=== PATIENT | female | born 1985 | race Caucasian/White ===

== ENCOUNTER 2021-02-17 08:57 | Emergency (ER) | payer MEDICAID ==
[~2021-02-17] VITALS: Ht 162.6 cm; Wt 81.6 kg
[2021-02-17 08:57] VITALS: BP_SYST 157
--- NOTE | 2021-02-17 08:57 | NUR ---
Chelsey lira in EDM - 02/17/21 at 0905 by REX BROUGHT IN BY [facility], PLACED IN HALLWAY AND TRIAGED. REPORT GIVEN TO LAMAR
[2021-02-17 09:05] VITALS: BP_SYST 137
--- NOTE | 2021-02-17 09:10 | NUR ---
Patient triaged and placed in waiting room. VSS and patient appears in no acute distress at this time. Accompanied by SELF, awaiting available bed, and MD notified of need for MSE.
[2021-02-17] MEDS ORDERED: NACL 0.9% 1,000 ML IV ONE (09:15)
[2021-02-17] MEDS ORDERED: levETIRAcetam 750 MG in NS 100 ML IV ONE (09:15)
--- NOTE | 2021-02-17 09:45 | NUR ---
DR JIMÉNEZ TO TRIAGE ROOM FOR EVALUATION
--- NOTE | 2021-02-17 09:50 | NUR ---
ALAINA REMOVED BY DR JIMÉNEZ
--- NOTE | 2021-02-17 10:01 | NUR ---
Patient given written and verbal discharge instructions and verbalizes understanding. ER MD discussed with patient the results and treatment provided. Patient in stable condition. ID arm band removed. Rx of NONE given. Patient educated on pain management and to follow up with PMD. Pain Scale 0/10. Opportunity for questions provided and answered. Medication side effect fact sheet provided.
== END 2021-02-17 10:01 | disposition home or self-care (01) ==
LOC: SED 08:57
DX: S01.01XD Laceration without foreign body of scalp, subsequent encounter (principal); Z48.02 Encounter for removal of sutures; X58.XXXD Exposure to other specified factors, subsequent encounter
CPT/HCPCS: 99281

== ENCOUNTER 2021-03-28 21:36 | Emergency (ER) | payer MEDICAID, SELFPAY ==
[~2021-03-28] VITALS: Ht 162.6 cm; Wt 81.6 kg
[2021-03-28 21:45] VITALS: BP_SYST 114
[2021-03-28] MEDS ORDERED: ACETAMINOPHEN 500 MG TABLET PO ONE (22:15)
[2021-03-28 22:53] LABS: BILIRUBIN,URINE 1+ (NEGATIVE); BLOOD, URINE NEGATIVE (NEGATIVE); CLARITY/URINE SL CLOUDY (CLEAR); COLOR,URINE YELLOW (YELLOW); GLUCOSE,URINE NEGATIVE (NEGATIVE); KETONES,URINE 1+ (NEGATIVE); LEUKOCYTE ESTERASE ,URINE NEGATIVE (NEGATIVE); NITRITE, URINE NEGATIVE (NEGATIVE); PROTEIN URINE NEGATIVE (NEGATIVE); UROBILINOGEN,URINE 0.2 (0.2-1.0)
[2021-03-28 22:58] LABS: HCG,QUAL RESULT NEGATIVE (NEGATIVE)
[2021-03-28 23:02] LABS: BASOPHILS % (AUTO) 0.5 % (0.0-2.0); EOSINOPHILS # (AUTO) 0.1 K/uL (0.0-0.4); EOSINOPHILS % (AUTO) 1.5 % (0.0-4.0); HEMATOCRIT 33.4 % (36-48); LYMPHOCYTES # (AUTO) 2.5 K/uL (1.0-5.5); LYMPHOCYTES % (AUTO) 28.1 % (20.5-51.5); MEAN CORPUSCULAR HEMOGLOBIN 24 pg (27-31); MEAN CORPUSCULAR HGB CONC 33 % (32-36); MEAN CORPUSCULAR VOLUME 73 fL (79.0-98.0); MONOCYTES # (AUTO) 0.9 K/uL (0.0-1.0); MONOCYTES % (AUTO) 10.1 % (1.7-9.3); NEUTROPHILS # (AUTO) 5.3 K/uL (1.8-7.7); NEUTROPHILS % (AUTO) 59.8 % (40.0-70.0); PLATELET COUNT (AUTO) 303 K/uL (130-430); RED BLOOD CELL COUNT(AUTO) 4.57 MIL/uL (4.2-6.2); RED CELL DISTRIBUTION WIDTH 16.9 % (9.0-15.0); WHITE BLOOD COUNT (AUTO) 8.8 K/uL (4.8-10.8)
[2021-03-28 23:05] LABS: CALCIUM 8.7 mg/dL (8.4-11.0); CREATININE 1.13 mg/dL (0.55-1.30); POTASSIUM 3.6 mmol/L (3.5-5.1)
[2021-03-28 23:11] LABS: ALBUMIN 3.6 g/dL (3.4-4.8); TOTAL BILIRUBIN 0.5 mg/dL (0.0-1.0)
[2021-03-28 23:19] LABS: BARBITURATE, URINE NEGATIVE (NEG <=200); BENZODIAZEPINE, URINE POSITIVE (NEG <=150); CANNABINOID, URINE POSITIVE (NEG <=50); COCAINE, URINE NEGATIVE (NEG <=150); METHAMPHETAMINES SCREEN,URINE POSITIVE (NEG <=500); PHENCYCLIDINE SCREEN,URINE POSITIVE (NEG <=25); URINE AMPHETAMINE POSITIVE (NEG <=500); URINE METHADONE NEGATIVE (NEG <=200)
[2021-03-28 23:20] LABS: OPIATE, URINE NEGATIVE (NEG <=100); UR TRICYCLIC ANTIDEPRESSANTS NEGATIVE (NEG <=300); URINE OXYCODONE SCREEN NEGATIVE (NEG <=100); URINE PROPOXYPHENE SCREEN NEGATIVE (NEG <=300)
[2021-03-29] MEDS ORDERED: NACL 0.9% 1,000 ML IV ONE (00:15)
[2021-03-29 07:33] VITALS: BP_SYST 117
== END 2021-03-29 07:35 ==
LOC: SED 21:36
DX: I77.74 Dissection of vertebral artery (principal); S09.90XA Unspecified injury of head, initial encounter; S39.91XA Unspecified injury of abdomen, initial encounter; R10.12 Left upper quadrant pain; R07.89 Other chest pain; F15.90 Other stimulant use, unspecified, uncomplicated; F20.9 Schizophrenia, unspecified; Z20.822 Contact with and (suspected) exposure to COVID-19; Y04.0XXA Assault by unarmed brawl or fight, initial encounter; Y93.89 Activity, other specified; Y92.89 Other specified places as the place of occurrence of the external cause; Y99.8 Other external cause status
CPT/HCPCS: 36415; 70450; 70498; 71260; 72125; 72132; 74177; 76376; 80053; 80307; 81003; 81025; 84703; 85025; 87426; 96360; 99291; J7030; Q9967

== ENCOUNTER 2021-07-22 20:44 | Emergency (ER) | payer MEDICAID, SELFPAY ==
[~2021-07-22] VITALS: Ht 162.6 cm; Wt 81.6 kg
--- NOTE | 2021-07-22 20:56 | NUR ---
Patient to ER bed 7 to gown for evaluation. Side rails up.
[2021-07-22 20:58] VITALS: BP_SYST 118
--- NOTE | 2021-07-22 21:06 | NUR ---
[place] [employer] at bedside speaking with patient
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
--- NOTE | 2021-07-22 22:48 | NUR ---
ER at bedside examining patient.
--- NOTE | 2021-07-22 23:38 | NUR ---
# 20 gauge angiocath placed to RIGHT AC. Use of asceptic technique. Opsite placed over site. Blood return noted. Flushed with 10 cc of normal saline. No evidence of infiltration noted. Patient tolerated well.
[2021-07-23 00:01] LABS: BASOPHILS % (AUTO) 0.7 % (0.0-2.0); EOSINOPHILS # (AUTO) 0.2 K/uL (0.0-0.4); EOSINOPHILS % (AUTO) 3.1 % (0.0-4.0); HEMATOCRIT 30.8 % (36-48); HEMOGLOBIN 9.7 g/dL (12.0-16.0); LYMPHOCYTES # (AUTO) 2.2 K/uL (1.0-5.5); LYMPHOCYTES % (AUTO) 36.7 % (20.5-51.5); MEAN CORPUSCULAR HEMOGLOBIN 23 pg (27-31); MEAN CORPUSCULAR HGB CONC 32 % (32-36); MEAN CORPUSCULAR VOLUME 72 fL (79.0-98.0); MONOCYTES # (AUTO) 0.7 K/uL (0.0-1.0); MONOCYTES % (AUTO) 12.1 % (1.7-9.3); NEUTROPHILS # (AUTO) 2.9 K/uL (1.8-7.7); NEUTROPHILS % (AUTO) 47.4 % (40.0-70.0); PLATELET COUNT (AUTO) 313 K/uL (130-430); RED BLOOD CELL COUNT(AUTO) 4.29 MIL/uL (4.2-6.2); RED CELL DISTRIBUTION WIDTH 17.1 % (9.0-15.0); WHITE BLOOD COUNT (AUTO) 6.1 K/uL (4.8-10.8)
[2021-07-23 00:18] LABS: CALCIUM 8.1 mg/dL (8.4-11.0); CREATININE 0.78 mg/dL (0.55-1.30); POTASSIUM 3.8 mmol/L (3.5-5.1)
[2021-07-23 00:30] LABS: ALBUMIN 3.1 g/dL (3.4-4.8); TOTAL BILIRUBIN 0.3 mg/dL (0.0-1.0)
--- NOTE | 2021-07-23 00:37 | NUR ---
Patient ambulated with steady gait to restroom to obtain urine sample. Urine test to be completed.
--- NOTE | 2021-07-23 00:51 | NUR ---
Patient transported to radiology via wheelchair, accompanied by
--- NOTE | 2021-07-23 01:05 | NUR ---
Returned from radiology, back to [facility].
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
--- NOTE | 2021-07-23 02:20 | NUR ---
Patient given discharge paperwork and refused to sign.
[2021-07-23 02:38] VITALS: BP_SYST 130
== END 2021-07-23 02:38 | disposition home or self-care (01) ==
LOC: SED 20:44
DX: M54.2 Cervicalgia (principal); Y04.0XXA Assault by unarmed brawl or fight, initial encounter; Y93.89 Activity, other specified; Y92.89 Other specified places as the place of occurrence of the external cause; Y99.8 Other external cause status
CPT/HCPCS: 36415; 70498; 76376; 80053; 81025; 84702; 85025; 99285; Q9967

== ENCOUNTER 2022-11-25 09:31 | Emergency (ER) | payer MEDICAID ==
[~2022-11-25] VITALS: Ht 162.6 cm; Wt 81.6 kg
--- NOTE | 2022-11-25 09:33 | NUR ---
DR MOREL AT BEDSIDE
[2022-11-25 09:42] VITALS: BP_SYST 110
--- NOTE | 2022-11-25 09:42 | NUR ---
Placed in room 2 . Placed on monitoring analyst, blood pressure machine and pulse oximeter. To gown for exam. Side rails up. Report given to YOMAIRA Gutiérrez.
--- NOTE | 2022-11-25 09:43 | NUR ---
RECEIVED PT FROM YOMAIRA HENAO. ASSUMED CARE. PT PLACED ON MONITOR. VSS.
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
[2022-11-25 10:12] LABS: BASOPHILS % (AUTO) 0.6 % (0.0-2.0); EOSINOPHILS # (AUTO) 0.1 K/uL (0.0-0.4); EOSINOPHILS % (AUTO) 1.4 % (0.0-4.0); HEMATOCRIT 30.2 % (36-48); HEMOGLOBIN 9.9 g/dL (12.0-16.0); LYMPHOCYTES # (AUTO) 1.8 K/uL (1.0-5.5); LYMPHOCYTES % (AUTO) 29.4 % (20.5-51.5); MEAN CORPUSCULAR HEMOGLOBIN 27 pg (27-31); MEAN CORPUSCULAR HGB CONC 33 % (32-36); MEAN CORPUSCULAR VOLUME 81 fL (79.0-98.0); MONOCYTES # (AUTO) 0.7 K/uL (0.0-1.0); MONOCYTES % (AUTO) 12.3 % (1.7-9.3); NEUTROPHILS # (AUTO) 3.4 K/uL (1.8-7.7); NEUTROPHILS % (AUTO) 56.3 % (40.0-70.0); PLATELET COUNT (AUTO) 262 K/uL (130-430); RED BLOOD CELL COUNT(AUTO) 3.74 MIL/uL (4.2-6.2)
[2022-11-25 10:17] LABS: CALCIUM 7.9 mg/dL (8.4-11.0); CREATININE 0.78 mg/dL (0.55-1.30)
[2022-11-25 10:22] LABS: TOTAL BILIRUBIN 0.3 mg/dL (0.0-1.0)
--- NOTE | 2022-11-25 10:55 | NUR ---
COMPLIANCE REPRESENTATIVE DEALER AT BEDSIDE TO DISCUSS NEED FOR PLACEMENT AND SUPPORT SERVICES.
--- NOTE | 2022-11-25 11:18 | NUR ---
Swamper SODA FOUNTAIN CLERK received a generated homeless referral from the ED. Triage, stated she resides in a hotel and will make a code correction. SODA FOUNTAIN CLERK went to meet with pt. to provide some homeless resources even though it was stated she came from the [facility]. SODA FOUNTAIN CLERK entered ED #2 and heard pt. having a conversation, but noon was in the room. SODA FOUNTAIN CLERK introduced self and provided pt. with a business care. Pt. was agreeable to this interview. Pt. stated she is rich, has a lot of property and people are taking all of her belongings. Pt. stated she does not know where she came form and stays on the streets. Pt. stated she takes Respirdol for Schizphrenia and gets her refills at [facility]. Pt. stated she had a 21 year old daughter and said SODA FOUNTAIN CLERK could call her. Pt. listed the phone number stated on the facesheet. SODA FOUNTAIN CLERK provided pt. with a packet full of homeless resources including but not limited to where to go for a clinic shelters and food [place]. SODA FOUNTAIN CLERK spoke to ED MD Dr. Dominguez who stated pt. is taking meds, in involved with [employer] and came from the [facility]. SODA FOUNTAIN CLERK shared with ED RN. Benjamin, pt. may need an Uber once medically discharged.
[2022-11-25] MEDS ORDERED: IBUP-1969 PO (11:23)
[2022-11-25] MEDS ORDERED: TRAM50TA2 PO (11:23)
--- NOTE | 2022-11-25 11:28 | NUR ---
PATIENT AMBULATED TO RESTROOM TO PROVIDE UA SAMPLE. HCG NEGATIVE
--- NOTE | 2022-11-25 11:40 | NUR ---
DR. MOREL AT BEDSIDE TO DISCUSS POC. PT WILL DISCHARE AND AN UBER WILL BE CALLED FOR HER,
[2022-11-25 11:55] VITALS: BP_SYST 142
--- NOTE | 2022-11-25 11:57 | NUR ---
Patient given written and verbal discharge instructions and verbalizes understanding. ER MD discussed with patient the results and treatment provided. Patient in stable condition. ID arm band removed. Rx of IBUPROPHEN, TRAMADOL given. Patient educated on pain management and to follow up with PMD. Pain Scale 0/10. Opportunity for questions provided and answered. Medication side effect fact sheet provided. PT ASSISTED TO FRONT OF HOSPITAL BY SECURITY AND LEFT PREMISES BY UBER.
== END 2022-11-25 11:57 | disposition home or self-care (01) ==
LOC: SED 09:31
DX: S33.5XXA Sprain of ligaments of lumbar spine, initial encounter (principal); R56.9 Unspecified convulsions; Z79.899 Other long term (current) drug therapy; X58.XXXA Exposure to other specified factors, initial encounter; Y93.89 Activity, other specified; Y92.89 Other specified places as the place of occurrence of the external cause; Y99.8 Other external cause status
CPT/HCPCS: 36415; 70450-TC; 72100-TC; 76376; 80053; 81025; 82962; 83605; 84703; 85025; 93005; 99285

== ENCOUNTER 2022-12-19 19:20 | Emergency (ER) | payer MEDICAID ==
[~2022-12-19] VITALS: Ht 162.6 cm; Wt 81.6 kg
[~2022-12-19 19:20] MED LIST: IBUP-1969 PO; TRAM50TA2 PO
[2022-12-19 19:24] VITALS: BP_SYST 109
--- NOTE | 2022-12-19 19:24 | NUR ---
Placed in room 07 . Placed on cafeteria monitor, blood pressure machine and pulse oximeter. To gown for exam. Side rails up. Report given to ZACHARY VALLE
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
--- NOTE | 2022-12-19 19:45 | NUR ---
PT AMBULATED TO BATHROOM UNASSISTED, WITH STEADY GAIT.
--- NOTE | 2022-12-19 20:10 | NUR ---
Patient given written and verbal discharge instructions and verbalizes understanding. ER DR WALLS discussed with patient the results and treatment provided. Patient in stable condition. ID arm band removed. NO Rx given. Patient educated on pain management and to follow up with PMD. Pain Scale 0/10. Opportunity for questions provided and answered. Medication side effect fact sheet provided.
--- NOTE | 2022-12-19 20:55 | NUR ---
ER Dr. WALLS at bedside examining patient.
--- NOTE | 2022-12-19 21:14 | NUR ---
RADIOLOGY AT BEDSIDE.
--- NOTE | 2022-12-19 22:32 | NUR ---
AMRIK TRIVEDI AT BEDSIDE FOR REPORT
[2022-12-19 22:52] VITALS: BP_SYST 112
== END 2022-12-19 22:52 | disposition home or self-care (01) ==
LOC: SED 19:20
DX: R07.89 Other chest pain (principal); F15.10 Other stimulant abuse, uncomplicated; Z79.899 Other long term (current) drug therapy
CPT/HCPCS: 71045; 99283

== ENCOUNTER 2023-05-10 08:06 | Emergency (ER) | payer MEDICAID ==
[~2023-05-10] VITALS: Ht 167.6 cm; Wt 54.4 kg
[2023-05-10 08:06] VITALS: BP_SYST 138; PULSE 77; RESP 17; TEMP 96.5; O2SAT 99
[2023-05-10] MEDS ORDERED: NALOXONE HCL 2 MG/2 ML SYR (NARCAN) IM ONE (08:30)
[2023-05-10 08:52] LABS: BASOPHILS % (AUTO) 0.6 % (0.0-2.0); EOSINOPHILS % (AUTO) 0.1 % (0.0-4.0); HEMATOCRIT 37.6 % (36-48); HEMOGLOBIN 11.9 g/dL (12.0-16.0); LYMPHOCYTES # (AUTO) 1.1 K/uL (1.0-5.5); LYMPHOCYTES % (AUTO) 24.9 % (20.5-51.5); MEAN CORPUSCULAR HEMOGLOBIN 25 pg (27-31); MEAN CORPUSCULAR HGB CONC 32 % (32-36); MEAN CORPUSCULAR VOLUME 79 fL (79.0-98.0); MONOCYTES # (AUTO) 0.3 K/uL (0.0-1.0); MONOCYTES % (AUTO) 5.5 % (1.7-9.3); NEUTROPHILS # (AUTO) 3.2 K/uL (1.8-7.7); NEUTROPHILS % (AUTO) 68.9 % (40.0-70.0); PLATELET COUNT (AUTO) 267 K/uL (130-430); RED BLOOD CELL COUNT(AUTO) 4.73 MIL/uL (4.2-6.2); RED CELL DISTRIBUTION WIDTH 17.5 % (9.0-15.0); WHITE BLOOD COUNT (AUTO) 4.6 K/uL (4.8-10.8)
[2023-05-10] MEDS ORDERED: NALOXONE HCL 2 MG/2 ML SYR ONE (09:02)
[2023-05-10 09:15] LABS: ANION GAP 10 (5-15); CALCIUM 9.2 mg/dL (8.4-11.0); CARBON DIOXIDE 26 mmol/L (23-29); CHLORIDE 99 mmol/L (98-107); CREATININE 0.82 mg/dL (0.55-1.30); GFR AFRICAN AMERICAN 99 mL/min (>90); GLUCOSE 93 mg/dL (74-106); POTASSIUM 3.2 mmol/L (3.5-5.1); SODIUM SERUM 135 mmol/L (136-145); UREA NITROGEN, BLOOD 13 mg/dL (8-21)
[2023-05-10 09:22] LABS: GFR NON AFRICAN-AMERICAN 82 mL/min (>90)
[2023-05-10 09:29] LABS: ALANINE AMINOTRANSFERASE 13 U/L (12-78); ALBUMIN 3.5 g/dL (3.4-4.8); ALCOHOL, BLOOD 61 mg/dL (<10); ASPARTATE AMINOTRANSFERASE 22 U/L (10-37); CREATINE KINASE, TOTAL 163 U/L (26-192); SALICYLATE 1 mg/dL (3-30); TOTAL BILIRUBIN 0.4 mg/dL (0.0-1.0); TOTAL PROTEIN, SERUM 8.1 g/dL (6.4-8.3)
[2023-05-10 09:36] LABS: INR 1.1 (0.8-1.2); PROTHROMBIN TIME 10.9 SECS (9.5-12.5)
[2023-05-10 09:38] LABS: ACETAMINOPHEN < 1 ug/mL (1-30)
[2023-05-10] MEDS ORDERED: BUPRENORPHINE HCL/NALOXONE HCL 2-0.5 MG 1 EACH TAB.SUBL SL ONE (09:45)
[2023-05-10] MEDS ORDERED: ONDANSETRON 4 MG ODT TAB ONE (09:51)
[2023-05-10 09:56] LABS: ACETONE, SERUM NEGATIVE (NEGATIVE)
[2023-05-10] MEDS ORDERED: ONDANSETRON 4 MG ODT TAB PO ONE (10:00)
[2023-05-10 10:27] VITALS: BP_SYST 138; PULSE 82; RESP 19; TEMP 98.4; O2SAT 95
== END 2023-05-10 11:46 | disposition home or self-care (01) ==
LOC: SED 08:06
DX: F11.23 Opioid dependence with withdrawal (principal); R40.0 Somnolence; Z79.899 Other long term (current) drug therapy
CPT/HCPCS: 99284; 70450; 80053; 82009; 82140; 82550; 85025; 85610; 85730; 84484; 36415; 76376; 83605; 82397; G0482; Q0162; J2310; G0480; G0481